=== PATIENT | male | born 1995 | race American Indian/Alaskan Native ===

== ENCOUNTER 2016-09-16 05:44 | Inpatient (IN) | payer OTHER ==
[2016-09-16 06:21] LABS: Basophils % (Auto) 0.4 % (0.0-1.8); Eosinophils % (Auto) 0.2 % (0.0-4.3); Mean Corpuscular HGB Conc 33 % (32-34); Mean Corpuscular Volume 76 fl (84-94); Platelet Count 233 K/mm3 (140-440); Red Blood Count 1.85 M/mm3 (3.65-5.03); Red Cell Distribution Width 17.4 % (13.2-15.2); White Blood Count 7.2 K/mm3 (4.5-11.0)
[2016-09-16 06:28] LABS: Mean Corpuscular Hemoglobin 25 pg (28-32)
[2016-09-16 06:30] LABS: Urine Drugs of Abuse Note Disclamer
[2016-09-16 06:31] LABS: Hemoglobin 4.6 gm/dl (11.8-15.2)
[2016-09-16 06:33] LABS: Hematocrit 14.1 % (35.5-45.6)
[2016-09-16 06:38] LABS: Anion Gap 16 mmol/L; BUN/Creatinine Ratio 18.75; Blood Urea Nitrogen 15 mg/dL (9-20); Carbon Dioxide 23 mmol/L (22-30); Chloride 101.5 mmol/L (98-107); Glucose 123 mg/dL (75-100); Potassium 3.4 mmol/L (3.6-5.0); Sodium 137 mmol/L (137-145)
[2016-09-16] MEDS ORDERED: PROTONIX IV ONE (06:38)
[2016-09-16] MEDS ORDERED: NACL 0.9% 500 ML 500 ML IV ONE ×4 (06:38→19:00)
[2016-09-16] MEDS ORDERED: NACL 0.9% 1000 ML 2,000 ML IV ONE (06:38)
--- NOTE | 2016-09-16 06:40 | Emergency Department Report ---
ED GI Bleed HPI - General Chief complaint: Syncope Stated complaint: PASSED OUT HEAD INJURY Time Seen by Provider: 09/16/16 06:38 Source: patient, family, RN notes reviewed Mode of arrival: Wheelchair Limitations: No Limitations - History of Present Illness Initial comments: This is a 21-year-old male. He is previously unknown to me. He is up-to-date with vaccinations, and has no chronic medical conditions. As per discussion with his family, his primary care doctor is Dr. Lowery The patient is brought to the hospital for black tarry stool since this past Tuesday, one episode of syncope earlier on today. The patient denies abdominal pain. He complains of mild headache. He complains of generalized weakness. He reports using NSAIDs intermittently. There is no midline neck pain. There is no extremity weakness. There is no extremity numbness. His symptoms are constant since Tuesday. They're getting worse. The patient reports no bowel movement for over 36 hours. There is no hematemesis. In the emergency room, the patient was found to have black tarry stool, on rectal examination, with a hemoglobin and hematocrit of 4/14, suggestive of upper GI bleed. 4 units of packed red blood cells were ordered. Protonix IV is ordered, and the case is discussed with gastroenterology, Dr. Lerner. He indicated he will follow as a consult, and does not recommend a Protonix drip. Patient currently has a GCS of 15, with an NIH score of 0, and is clinically sober. Noncontrast CT scan of the brain is negative. Patient had 2 large-bore IVs placed, with normal saline infusing. The case was presented to the Hospital physician, Dr. Olesn, who accepted the patient for symptomatically anemia, presumed upper GI bleed. complaint: melena -: Gradual, days(s) Severity scale (0 -10): 10 Quality: painless Consistency: constant Improves with: none Worsens with: none Associated Symptoms: loss of appetite, syncope. denies: abdominal pain, nausea , vomiting - Related Data Home Medications Medication Instructions Recorded Confirmed Last Taken No Known Home Medications [No 09/16/16 09/16/16 Unknown Reported Home Medications] Allergies Allergy/AdvReac Type Severity Reaction Status Date / Time No Known Allergies Allergy Verified 09/16/16 05:52 ED Review of Systems ROS: Stated complaint: PASSED OUT HEAD INJURY Other details as noted in HPI Constitutional: malaise, weakness Eyes: denies: vision change ENT: denies: epistaxis Respiratory: denies: cough Cardiovascular: syncope Gastrointestinal: melena Genitourinary: denies: dysuria Musculoskeletal: denies: back pain Skin: denies: lesions Neurological: weakness ED Past Medical Hx - Past Medical History Previous Medical History?: No - Surgical History Past Surgical History?: No - Social History Smoking Status: Never Smoker Substance Use Type: None - Medications Home Medications: Home Medications Medication Instructions Recorded Confirmed Last Taken Type No Known Home Medications [No 09/16/16 09/16/16 Unknown History Reported Home Medications] ED Physical Exam - General Limitations: No Limitations General appearance: alert, in no apparent distress - Head Head exam: Present: atraumatic, normocephalic - Eye Eye exam: Present: normal appearance, EOMI, other (bilateral conjunctiva are pale). Absent: nystagmus - ENT ENT exam: Present: normal exam, normal orophraynx, mucous membranes dry - Neck Neck exam: Present: normal inspection, full ROM. Absent: tenderness, meningismus - Respiratory Respiratory exam: Present: normal lung sounds bilaterally. Absent: respiratory distress, wheezes, rales, rhonchi, stridor, chest wall tenderness, accessory muscle use, decreased breath sounds, prolonged expiratory - Cardiovascular Cardiovascular Exam: Present: normal rhythm, tachycardia, normal heart sounds. Absent: systolic murmur, diastolic murmur, rubs, gallop - GI/Abdominal GI/Abdominal exam: Present: soft, normal bowel sounds. Absent: distended, tenderness, guarding, rebound, rigid, pulsatile mass - Rectal Rectal exam: Present: normal inspection, normal rectal tone, heme (+) stool, black stool, other (during rectal examination, I am escorted by nurse PALAK LOPEZ) - Extremities Exam Extremities exam: Present: normal inspection, full ROM, normal capillary refill. Absent: pedal edema, joint swelling, calf tenderness - Back Exam Back exam: Present: normal inspection, full ROM. Absent: tenderness, CVA tenderness (R), CVA tenderness (L), muscle spasm, paraspinal tenderness, vertebral tenderness - Neurological Exam Neurological exam: Present: alert, oriented X3, other (Extraocular movements intact. Tongue midline. No facial droop. Facial sensation intact to light touch in the V1, V2, V3 distribution bilaterally. 5 and 5 strength in 4 extremities.. Sensation is intact to light touch in 4 extremities.). Absent: motor sensory deficit - Psychiatric Psychiatric exam: Present: normal affect, normal mood - Skin Skin exam: Present: warm, dry, intact, normal color. Absent: rash ED Course Vital Signs 09/16/16 09/16/16 09/16/16 05:51 05:52 06:49 Temperature 99.1 F 99.7 F H Pulse Rate 95 H 95 H 101 H Respiratory 20 20 18 Rate Blood Pressure 124/74 Blood Pressure 124/74 123/70 [Right] O2 Sat by Pulse 98 98 100 Oximetry 09/16/16 09/16/16 09/16/16 08:23 08:34 09:10 Temperature 99 F 99.3 F Pulse Rate 95 H 108 H Respiratory 16 19 Rate Blood Pressure 111/78 Blood Pressure 121/71 [Right] O2 Sat by Pulse 100 Oximetry 09/16/16 09:23 Temperature 98.6 F Pulse Rate 95 H Respiratory 16 Rate Blood Pressure 117/66 Blood Pressure [Right] O2 Sat by Pulse Oximetry ED Medical Decision Making - Lab Data Result diagrams: 09/16/16 06:11 09/16/16 06:11 Vital Signs 09/16/16 09/16/16 09/16/16 05:51 05:52 06:49 Temperature 99.1 F 99.7 F H Pulse Rate 95 H 95 H 101 H Respiratory 20 20 18 Rate Blood Pressure 124/74 Blood Pressure 124/74 123/70 [Right] O2 Sat by Pulse 98 98 100 Oximetry Labs 09/16/16 09/16/16 09/16/16 06:11 06:11 06:40 WBC 7.2 RBC 1.85 L Hgb 4.6 L* Hct 14.1 L* MCV 76 L MCH 25 L MCHC 33 RDW 17.4 H Plt Count 233 Lymph % (Auto) 24.9 [place] % (Auto) 9.1 H Eos % (Auto) 0.2 Baso % (Auto) 0.4 Lymph # 1.8 [place] # 0.7 Eos # 0.0 Baso # 0.0 Seg Neutrophils % 65.4 Seg Neutrophils # 4.7 PT INR Sodium 137 Potassium 3.4 L Chloride 101.5 Carbon Dioxide 23 Anion Gap 16 BUN 15 Creatinine 0.8 Estimated GFR > 60 BUN/Creatinine Ratio 18.75 Glucose 123 H Lactic Acid Calcium 8.0 L Urine Color Urine Turbidity Urine pH Ur Specific [place] Urine Protein Urine Glucose (UA) Urine Ketones Urine Blood Urine Nitrite Urine Bilirubin Urine Urobilinogen Ur Leukocyte Esterase Urine WBC (Auto) Urine RBC (Auto) Urine Mucus Urine Opiates Screen Urine Methadone Screen Ur Barbiturates Screen Ur Phencyclidine Scrn Ur Amphetamines Screen U Benzodiazepines Scrn Urine Cocaine Screen U Marijuana (THC) Screen Drugs of Abuse Note Blood Type A POSITIVE Antibody Screen TNR DUTCH Antibody Screen Negative Crossmatch See Detail 09/16/16 09/16/16 09/16/16 Unknown Unknown Unknown WBC RBC Hgb Hct MCV MCH MCHC RDW Plt Count Lymph % (Auto) [place] % (Auto) Eos % (Auto) Baso % (Auto) Lymph # [place] # Eos # Baso # Seg Neutrophils % Seg Neutrophils # PT 14.8 INR 1.17 H Sodium Potassium Chloride Carbon Dioxide Anion Gap BUN Creatinine Estimated GFR BUN/Creatinine Ratio Glucose Lactic Acid Calcium Urine Color Yellow Urine Turbidity Clear Urine pH 6.0 Ur Specific [place] 1.017 Urine Protein <15 mg/dl Urine Glucose (UA) Neg Urine Ketones Neg Urine Blood Neg Urine Nitrite Neg Urine Bilirubin Neg Urine Urobilinogen < 2.0 Ur Leukocyte Esterase Neg Urine WBC (Auto) 2.0 Urine RBC (Auto) 3.0 Urine Mucus Few Urine Opiates Screen Presumptive negative Urine Methadone Screen Presumptive negative Ur Barbiturates Screen Presumptive negative Ur Phencyclidine Scrn Presumptive negative Ur Amphetamines Screen Presumptive negative U Benzodiazepines Scrn Presumptive negative Urine Cocaine Screen Presumptive negative U Marijuana (THC) Screen Presumptive negative Drugs of Abuse Note Disclamer Blood Type Antibody Screen DUTCH Antibody Screen Crossmatch 09/16/16 Unknown WBC RBC Hgb Hct MCV MCH MCHC RDW Plt Count Lymph % (Auto) [place] % (Auto) Eos % (Auto) Baso % (Auto) Lymph # [place] # Eos # Baso # Seg Neutrophils % Seg Neutrophils # PT INR Sodium Potassium Chloride Carbon Dioxide Anion Gap BUN Creatinine Estimated GFR BUN/Creatinine Ratio Glucose Lactic Acid 1.40 Calcium Urine Color Urine Turbidity Urine pH Ur Specific [place] Urine Protein Urine Glucose (UA) Urine Ketones Urine Blood Urine Nitrite Urine Bilirubin Urine Urobilinogen Ur Leukocyte Esterase Urine WBC (Auto) Urine RBC (Auto) Urine Mucus Urine Opiates Screen Urine Methadone Screen Ur Barbiturates Screen Ur Phencyclidine Scrn Ur Amphetamines Screen U Benzodiazepines Scrn Urine Cocaine Screen U Marijuana (THC) Screen Drugs of Abuse Note Blood Type Antibody Screen DUTCH Antibody Screen Crossmatch - EKG Data -: EKG Interpreted by Me Rate: tachycardia - EKG Data 09/16/16 08:24 sinus tachycardia, 100 bpm, normal axis, normal intervals, not morphologically consistent with stemi - Radiology Data Radiology results: report reviewed, image reviewed Noncontrast CT scan of the brain is negative for acute disease Critical Care Time: Yes Critical care time in (mins) excluding proc time.: 35 Critical care attestation.: If time is entered above; I have spent that time in minutes in the direct care of this critically ill patient, excluding procedure time. Critical Care Time: Critical care time includes multiple bedside evaluations, interpretation of laboratory studies, radiology studies, time spent discussing patient's care with multiple consulting services, including hospital medicine and gastroenterology. This also includes time resuscitating a critically ill patient with severely symptomatic anemia, most likely class 2/class III hemorrhage, requiring packed red blood cell transfusion. This does not include procedure time. ED Disposition Clinical Impression: Symptomatic anemia GI bleed Qualifiers: GI bleed type/associated pathology: unspecified gastrointestinal hemorrhage type Qualified Code(s): K92.2 - Gastrointestinal hemorrhage, unspecified Disposition: [id number] OP ADMIT IP TO THIS HOSP Is pt being admited?: Yes Condition: Good
--- NOTE | 2016-09-16 06:43 | Cat Scan Report ---
FINAL REPORT PROCEDURE: CT HEAD/BRAIN WO CON TECHNIQUE: Computerized tomography of the head was performed without contrast material. HISTORY: SYNCOPE/HEAD INJURY COMPARISON: No prior studies are available for comparison. FINDINGS: Skull and scalp: Normal. Paranasal sinuses: Normal. Ventricles and subarachnoid spaces: Normal. Cerebrum: No evidence of hemorrhage, acute infarction or mass . Cerebellum and brainstem: No evidence of hemorrhage, acute infarction or mass. Vasculature: Normal. Comments: None. IMPRESSION: Normal Examination
[2016-09-16 06:52] LABS: Bilirubin,Urine NEG (Negative); Blood,Urine NEG (Negative); Ketones,Urine NEG (Negative); Leukocyte Esterase,Urine NEG (Negative); Mucus,Urine FEW /HPF; Nitrite,Urine NEG (Negative); Protein,Urine <15 mg/dL mg/dL (Negative); Urobilinogen,Urine < 2.0 mg/dL (<2.0)
[2016-09-16] MEDS ORDERED: PROTONIX 80 MG in NACL 0.9% 100 ML IV SCH (07:00)
[2016-09-16 07:23] LABS: INR 1.17 (0.87-1.13)
--- NOTE | 2016-09-16 07:31 | Admit Criteria Form ---
Admission Criteria Documentation: GASTROINTESTINAL BLEEDING Clinical Indications for Inpatient Care (Place 'X' for any and all applicable criteria): Ongoing inpatient care may be indicated for gastrointestinal bleeding with ANY ONE of the following (4)(20)(21)(22)(23)(24): [ ]I. Active bleeding (eg, fresh voluminous blood in emesis or nasogastric aspirate, or per rectum) [ ]II. Hemodynamic instability [ ]III. Anticoagulation therapy or coagulopathy ((eg, advanced liver disease, irreversible anticoagulation) [ ]IV. Ischemic colitis (22) [ ]V. Endoscopy showing arterial bleeding, adherent clot, nonbleeding visible vessel, varices, flat red spots, ulcer size greater than 2 cm, or portal hypertensive gastropathy [ ]. High-risk low platelet count [X]VII. Anemia requiring inpatient care as indicated by ANY ONE of the following a)[ ] Cognitive impairment b)[X] Syncope c)[ ] Heart failure d)[ ] Chest pain e)[ ] Dyspnea f)[ ] Other findings suggesting inadequate perfusion (eg, peripheral or myocardial ischemia, end organ dysfunction) [ ]VIII. High-risk low platelet count [ ]IX. Suspected variceal cause of bleeding as indicated by ANY ONE of the following(27)(28): a)[ ] Known varices b)[ ] Hepatomegaly or splenomegaly c)[ ] Ascites d)[ ] Jaundice or scleral icterus e)[ ] History of liver disease (eg, cirrhosis) f)[ ] Physical findings of portal hypertension (eg, caput [place]usa) g)[ ] Comorbid disorder indicating risk for portal vein thrombosis (eg , abdominal surgery, sepsis, shock, exchange transfusion, prior umbilical vein catheterization) Extended stay may be needed until ALL of the following are present(20)(38)(47): [ ]a) Hemodynamic stability [ ]b) No evidence of active bleeding (eg, stable Hematocrit) [ ]c) Platelet count, prothrombin time, and partial thromboplastin time acceptable for next level of care [ ]d) Surgical or other acute intervention not needed [ ]e) Oral hydration and diet tolerated The original [facility] [employer] content created by Luis Carvalho has been revised. The portions of the content which have been revised are identified through the use of italic text or in bold, and Luis Carvalho has neither reviewed nor approved the modified material. All other unmodified content is copyright [facility]. Please see references footnoted in the original [facility] edition 2016 Admission Criteria Met: Yes
--- NOTE | 2016-09-16 07:38 | History and Physical Report ---
History of Present Illness Date of examination: 09/16/16 Date of admission: 09/16/2016 Chief complaint: Syncope History of present illness: Patient is a 21-year-old male with past medical history except for recent onset of headaches with photophobia. Patient reports that has been using it 100 mg a day of NSAIDs for the past 1 week days to help this headache subside. Patient reports that in the last 4 days has been experiencing black tarry stools and today had a syncopal episode in the restroom and believes he may have hit his head. He denies any blurry vision nausea vomiting or reports black tarry stools and in the ER was noted to have a hemoglobin of less than 5. He denies is not having a bowel movement in the last 4 days nevertheless. Ocular exam done in the ER did show positive occult blood. He denies any chest pain, he does report dizziness. Patient currently has a GCS of 15, with an NIH score of 0, and is clinically sober Primary care doctor is Dr. Beverley MAXWELL Constitutional: No fever, fatigue or weight loss. Skin: No rash. Eyes: No recent vision problems or eye pain. ENT: No congestion, ear pain, or sore throat. Endocrine: No thyroid problems. Cardiovascular: No chest pain. Respiratory: No cough, shortness of breath, congestion, or wheezing. Gastrointestinal: No abdominal pain, nausea, vomiting, or diarrhea. Genitourinary: No dysuria. Musculoskeletal: No joint swelling. Neurologic: No seizures. By reports dizziness Hematologic: Reports black tarry stools . Psychiatric: No psychiatric problems, hallucinations or depression. All other systems reviewed and otherwise negative. Past History Past Medical History: migraines (recent onset in the last week) Past Surgical History: No surgical history Social history: full code. denies: smoking, alcohol abuse, prescription drug abuse, IV drug use Family history: no significant family history Medications and Allergies Allergies Allergy/AdvReac Type Severity Reaction Status Date / Time No Known Allergies Allergy Verified 09/16/16 05:52 Home Medications Medication Instructions Recorded Confirmed Last Taken Type No Known Home Medications [No 09/16/16 09/16/16 Unknown History Reported Home Medications] Active Meds: Active Medications Acetaminophen (Tylenol) 650 mg PO Q4H PRN PRN Reason: Pain MILD(1-3)/Fever >100.5/LIEBERMAN Bisacodyl (Dulcolax) 10 mg VA QDAY PRN PRN Reason: Constipation unrelieved by MOM Magnesium Hydroxide (Milk Of Magnesia) 30 ml PO Q4H PRN PRN Reason: Constipation Ondansetron HCl (Zofran) 4 mg IV Q8H PRN PRN Reason: N/V unrelieved by Reglan Exam - Physical Exam Narrative exam: VITAL SIGNS: Reviewed. GENERAL: The patient appeared well nourished and normally developed. Vital signs as documented. HEAD: No signs of head trauma. EYES: Pupils are equal. Extraocular motions intact. EARS: Hearing grossly intact. MOUTH: Oropharynx is normal. NECK: No adenopathy, no JVD. CHEST: Chest with clear breath sounds bilaterally. No wheezes, rales, or rhonchi. CARDIAC: Regular rate and rhythm. S1 and S2, without murmurs, gallops, or rubs. VASCULAR: No Edema. Peripheral pulses normal and equal in all extremities. ABDOMEN: Soft, without detectable tenderness. No sign of distention. No rebound or guarding, and no masses palpated. Bowel Sounds normal. MUSCULOSKELETAL: Good range of motion of all major joints. Extremities without clubbing, cyanosis or edema. NEUROLOGIC EXAM: Alert and oriented x 3. No focal sensory or strength deficits. Speech normal. Follows commands. PSYCHIATRIC: Mood normal. SKIN: No rash or lesions. - Constitutional Vitals: Temp Pulse Resp BP Pulse Ox 99.7 F H 101 H 18 123/70 100 09/16/16 05:52 09/16/16 06:49 09/16/16 06:49 09/16/16 06:49 09/16/16 06:49 Results - Labs CBC & Chem 7: 09/16/16 06:11 09/16/16 06:11 Labs: Laboratory Last Values WBC 7.2 K/mm3 (4.5-11.0) 09/16/16 06:11 RBC 1.85 M/mm3 (3.65-5.03) L 09/16/16 06:11 Hgb 4.6 gm/dl (11.8-15.2) L* 09/16/16 06:11 Hct 14.1 % (35.5-45.6) L* 09/16/16 06:11 MCV 76 fl (84-94) L 09/16/16 06:11 MCH 25 pg (28-32) L 09/16/16 06:11 MCHC 33 % (32-34) 09/16/16 06:11 RDW 17.4 % (13.2-15.2) H 09/16/16 06:11 Plt Count 233 K/mm3 (140-440) 09/16/16 06:11 Lymph % (Auto) 24.9 % (13.4-35.0) 09/16/16 06:11 [place] % (Auto) 9.1 % (0.0-7.3) H 09/16/16 06:11 Eos % (Auto) 0.2 % (0.0-4.3) 09/16/16 06:11 Baso % (Auto) 0.4 % (0.0-1.8) 09/16/16 06:11 Lymph # 1.8 K/mm3 (1.2-5.4) 09/16/16 06:11 [place] # 0.7 K/mm3 (0.0-0.8) 09/16/16 06:11 Eos # 0.0 K/mm3 (0.0-0.4) 09/16/16 06:11 Baso # 0.0 K/mm3 (0.0-0.1) 09/16/16 06:11 Seg Neutrophils % 65.4 % (40.0-70.0) 09/16/16 06:11 Seg Neutrophils # 4.7 K/mm3 (1.8-7.7) 09/16/16 06:11 PT 14.8 Sec. (12.2-14.9) 09/16/16 Unknown INR 1.17 (0.87-1.13) H 09/16/16 Unknown Sodium 137 mmol/L (137-145) 09/16/16 06:11 Potassium 3.4 mmol/L (3.6-5.0) L 09/16/16 06:11 Chloride 101.5 mmol/L (98-107) 09/16/16 06:11 Carbon Dioxide 23 mmol/L (22-30) 09/16/16 06:11 Anion Gap 16 mmol/L 09/16/16 06:11 BUN 15 mg/dL (9-20) 09/16/16 06:11 Creatinine 0.8 mg/dL (0.8-1.5) 09/16/16 06:11 Estimated GFR > 60 ml/min 09/16/16 06:11 BUN/Creatinine Ratio 18.75 % 09/16/16 06:11 Glucose 123 mg/dL (75-100) H 09/16/16 06:11 Lactic Acid 1.40 mmol/L (0.7-2.0) 09/16/16 Unknown Calcium 8.0 mg/dL (8.4-10.2) L 09/16/16 06:11 Urine Color Yellow (Yellow) 09/16/16 Unknown Urine Turbidity Clear (Clear) 09/16/16 Unknown Urine pH 6.0 (5.0-7.0) 09/16/16 Unknown Ur Specific [place] 1.017 (1.003-1.030) 09/16/16 Unknown Urine Protein <15 mg/dl mg/dL (Negative) 09/16/16 Unknown Urine Glucose (UA) Neg mg/dL (Negative) 09/16/16 Unknown Urine Ketones Neg mg/dL (Negative) 09/16/16 Unknown Urine Blood Neg (Negative) 09/16/16 Unknown Urine Nitrite Neg (Negative) 09/16/16 Unknown Urine Bilirubin Neg (Negative) 09/16/16 Unknown Urine Urobilinogen < 2.0 mg/dL (<2.0) 09/16/16 Unknown Ur Leukocyte Esterase Neg (Negative) 09/16/16 Unknown Urine WBC (Auto) 2.0 /HPF (0.0-6.0) 09/16/16 Unknown Urine RBC (Auto) 3.0 /HPF (0.0-6.0) 09/16/16 Unknown Urine Mucus Few /HPF 09/16/16 Unknown Urine Opiates Screen Presumptive negative 09/16/16 Unknown Urine Methadone Screen Presumptive negative 09/16/16 Unknown Ur Barbiturates Screen Presumptive negative 09/16/16 Unknown Ur Phencyclidine Scrn Presumptive negative 09/16/16 Unknown Ur Amphetamines Screen Presumptive negative 09/16/16 Unknown U Benzodiazepines Scrn Presumptive negative 09/16/16 Unknown Urine Cocaine Screen Presumptive negative 09/16/16 Unknown U Marijuana (THC) Screen Presumptive negative 09/16/16 Unknown Drugs of Abuse Note Disclamer 09/16/16 Unknown Blood Type A POSITIVE 09/16/16 06:40 Antibody Screen TNR 09/16/16 06:40 Crossmatch See Detail 09/16/16 06:40 - Imaging and Cardiology CT Scan - head: image reviewed (NEGATIVE) Assessment and Plan Assessment and plan: Patient is a 21-year-old male with past medical history except for recent onset of headaches with photophobia. Patient reports that has been using it 100 mg a day of NSAIDs for the past 1 week days to help this headache subside. Patient reports that in the last 4 days has been experiencing black tarry stools and today had a syncopal episode in the restroom and believes he may have hit his head. He denies any blurry vision nausea vomiting or reports black tarry stools and in the ER was noted to have a hemoglobin of less than 5. He denies is not having a bowel movement in the last 4 days nevertheless. Ocular exam done in the ER did show positive occult blood. He denies any chest pain, he does report dizziness. Patient currently has a GCS of 15, with an NIH score of 0, and is clinically sober Advance Directives: Yes Plan of care discussed with patient/family: Yes - Patient Problems (1) Syncope and collapse Current Visit: Yes Status: Acute Plan to address problem: -Likely secondary to vasodilatory effect from acute blood loss anemia -will monitor on Telemetry (2) Hypokalemia Current Visit: Yes Status: Acute Plan to address problem: -Replace (3) GI bleed Current Visit: Yes Status: Acute Qualifiers: GI bleed type/associated pathology: unspecified gastrointestinal hemorrhage type Gastritis type: G Qualified Code(s): K92.2 - Gastrointestinal hemorrhage, unspecified Plan to address problem: -GI consulted -PPI IV BID - Transfuse 4 units PRBC and monitor. (4) Symptomatic anemia Current Visit: Yes Status: Acute Plan to address problem: -Transfuse and monitor. (5) Acute blood loss anemia Current Visit: Yes Status: Acute Plan to address problem: -Secondary to GI bleed. Etiology ?, Transfuse as noted above. (6) Migraine Current Visit: Yes Status: Acute Qualifiers: Migraine type: M Status migrainosus presence: S Intractability: I Plan to address problem: -Recommend outpatient Neurology exam if persist. For now, supportive care with MORPHIN and transition to ultram once cleared for PO intake.
[2016-09-16] MEDS ORDERED: NACL 0.9% 500 ML 500 ML ONE (09:05)
[2016-09-16] MEDS ORDERED: ZOFRAN IV PRN (10:00)
[2016-09-16] MEDS ORDERED: TYLENOL PO PRN (10:00)
[2016-09-16] MEDS ORDERED: DULCOLAX PR PRN (10:00)
[2016-09-16] MEDS ORDERED: MILK OF MAGNESIA PO PRN (10:00)
--- NOTE | 2016-09-16 10:20 | Gastroenterology Consultation ---
History of Present Illness - Reason for Consult Consult date: 09/16/16 Requesting physician: JENNIE HURTADO - History of Present Illness Mr. Simms is a 21 y/o male admitted after a syncopal episode at home. On admission he was found to have and H/H of 4.6/14.1. He reports noting black stools over the past week, but no BM in 48 hours. He denies abdominal pain. He was taking aleve and ibuprofen for a LIEBERMAN, but started after seeing melena. Prior to this he was in his normal state of health. No previous GI issues. PMH ; none. Past History Past Medical History: No medical history, migraines (recent onset in the last week) Past Surgical History: No surgical history Social history: full code. denies: smoking, alcohol abuse, prescription drug abuse, IV drug use Family history: no significant family history Medications and Allergies Allergies Allergy/AdvReac Type Severity Reaction Status Date / Time No Known Allergies Allergy Verified 09/16/16 05:52 Home Medications Medication Instructions Recorded Confirmed Last Taken Type No Known Home Medications [No 09/16/16 09/16/16 Unknown History Reported Home Medications] Active Meds: Active Medications Acetaminophen (Tylenol) 650 mg PO Q4H PRN PRN Reason: Pain MILD(1-3)/Fever >100.5/LIEBERMAN Bisacodyl (Dulcolax) 10 mg WI QDAY PRN PRN Reason: Constipation unrelieved by MOM Magnesium Hydroxide (Milk Of Magnesia) 30 ml PO Q4H PRN PRN Reason: Constipation Morphine Sulfate (Morphine) 2 mg IV Q6HR PRN PRN Reason: Pain, Moderate (4-6) Ondansetron HCl (Zofran) 4 mg IV Q8H PRN PRN Reason: N/V unrelieved by Reglan Review of Systems - Review of Systems All systems: negative Constitutional: fatigue Gastrointestinal: melena Neurological: other (syncope) Exam - Constitutional Vital Signs: Temp Pulse Resp BP Pulse Ox 98.6 F 95 H 16 117/66 100 09/16/16 09:23 09/16/16 09:23 09/16/16 09:23 09/16/16 09:23 09/16/16 08:23 General appearance: no acute distress - EENT Eyes: EOM intact ENT: hearing intact - Neck Neck: supple - Respiratory Respiratory: bilateral: CTA - Cardiovascular Rhythm: regular Heart Sounds: Present: S1 & S2 Extremities: No edema - Gastrointestinal General gastrointestinal: Present: soft, non-tender, normal bowel sounds - Integumentary Integumentary: Present: warm, dry - Neurologic Neurological: alert and oriented x3 - Psychiatric Psychiatric: appropriate mood/affect, cooperative - Labs CBC & Chem 7: 09/16/16 06:11 09/16/16 06:11 Lab Results: Laboratory Results - last 24 hr 09/16/16 09/16/16 09/16/16 Unknown Unknown Unknown PT 14.8 INR 1.17 H Lactic Acid Urine Color Yellow Urine Turbidity Clear Urine pH 6.0 Ur Specific Sarita 1.017 Urine Protein <15 mg/dl Urine Glucose (UA) Neg Urine Ketones Neg Urine Blood Neg Urine Nitrite Neg Urine Bilirubin Neg Urine Urobilinogen < 2.0 Ur Leukocyte Esterase Neg Urine WBC (Auto) 2.0 Urine RBC (Auto) 3.0 Urine Mucus Few Urine Opiates Screen Presumptive negative Urine Methadone Screen Presumptive negative Ur Barbiturates Screen Presumptive negative Ur Phencyclidine Scrn Presumptive negative Ur Amphetamines Screen Presumptive negative U Benzodiazepines Scrn Presumptive negative Urine Cocaine Screen Presumptive negative U Marijuana (THC) Screen Presumptive negative Drugs of Abuse Note Disclamer 09/16/16 Unknown PT INR Lactic Acid 1.40 Urine Color Urine Turbidity Urine pH Ur Specific Sarita Urine Protein Urine Glucose (UA) Urine Ketones Urine Blood Urine Nitrite Urine Bilirubin Urine Urobilinogen Ur Leukocyte Esterase Urine WBC (Auto) Urine RBC (Auto) Urine Mucus Urine Opiates Screen Urine Methadone Screen Ur Barbiturates Screen Ur Phencyclidine Scrn Ur Amphetamines Screen U Benzodiazepines Scrn Urine Cocaine Screen U Marijuana (THC) Screen Drugs of Abuse Note Assessment and Plan 1. GI bleed 2. Melena 3. Acute symptomatic anemia -Agree with PRBC transfusion. Patient has received 1 unit to this point and is to receive 3 more. -PPI IV BID -No bleeding / BM in 48 hours. -Hold all blood thinning meds -Hemodynamically stable. -Ok for clear liquids. -Plan for EGD tomorrow. -Further recommendations to follow.
[2016-09-16] MEDS ORDERED: MORPHINE IV PRN (12:00)
[2016-09-16] MEDS ORDERED: PROTONIX IV SCH (22:00)
[2016-09-17 00:01] LABS: Hematocrit 26.3 % (35.5-45.6); Hemoglobin 8.7 gm/dl (11.8-15.2)
[2016-09-17 05:14] LABS: Basophils % (Auto) 0.3 % (0.0-1.8); Eosinophils % (Auto) 0.7 % (0.0-4.3); Hematocrit 25.8 % (35.5-45.6); Hemoglobin 8.6 gm/dl (11.8-15.2); Mean Corpuscular HGB Conc 33 % (32-34); Mean Corpuscular Hemoglobin 27 pg (28-32); Mean Corpuscular Volume 82 fl (84-94); Platelet Count 197 K/mm3 (140-440); Red Blood Count 3.14 M/mm3 (3.65-5.03); Red Cell Distribution Width 16.1 % (13.2-15.2); White Blood Count 7.4 K/mm3 (4.5-11.0)
[2016-09-17 05:18] LABS: Anion Gap 15 mmol/L; BUN/Creatinine Ratio 6.66; Blood Urea Nitrogen 6 mg/dL (9-20); Calcium 8.3 mg/dL (8.4-10.2); Carbon Dioxide 24 mmol/L (22-30); Glucose 85 mg/dL (75-100); Potassium 3.9 mmol/L (3.6-5.0); Sodium 140 mmol/L (137-145)
[2016-09-17] MEDS ORDERED: NACL 0.9% 1000 ML 1,000 ML IV SCH (11:00)
[2016-09-17] MEDS ORDERED: DIPRIVAN 10 MG/ML IV ONE ×2 (11:11)
--- NOTE | 2016-09-17 11:24 | Anesthesia Consultation ---
Anesthesia Consult and Med Hx Date of service: 09/17/16 - Airway Anesthetic Teeth Evaluation: Good (uneven teeth) ROM Head & Neck: Adequate Mental/Hyoid Distance: Adequate Mallampati Class: Class II Intubation Access Assessment: Probably Good - Pre-Operative Health Status ASA Pre-Surgery Classification: ASA2 Proposed Anesthetic Plan: MAC - Pulmonary COPD: No Hx Pneumonia: No - Gastrointestinal Hx Ulcer: Yes (severe GI bleed) - Hematic Hx Anemia: Yes (given 4 units of RBCs)
--- NOTE | 2016-09-17 11:24 | Anesthesia Day of Surgery ---
Anesthesia Day of Surgery - Day of Surgery Patient Examined: Yes Patient H&P Reviewed: Yes Patient is NPO: Yes
[2016-09-17] MEDS ORDERED: XYLOCAINE MPF 2% ONE (12:00)
--- NOTE | 2016-09-17 12:06 | Post Operative Note ---
Pre-op diagnosis: Melena Post-op diagnosis: other (Duodenal bulb ulcer - healing, and small at 5 mm) Findings: 1. 5 mm duodenal bulb ulcer, no stigmata of bleeding. 2. Otherwise normal EGD. 3. Small benign appearing nodule/growth on R side just above epiglottis, 3-4 mm. Procedure: EGD Anesthesia: MAC Surgeon: JENNYFER PORRAS Estimated blood loss: none Pathology: none Condition: stable Disposition: floor (Adv diet, and july D/C from GI standpoint. Needs bid PPI. May f/u in 1 month.)
[2016-09-17] MEDS ORDERED: PROTONIX PO SCH (13:00)
--- NOTE | 2016-09-17 13:30 | Discharge Summary ---
Providers - Providers Date of Admission: 09/16/16 08:06 Date of discharge: 09/17/16 Attending physician: JUAN LOERA Primary care physician: TOMASZ LYLES Hospitalization Condition: Stable Hospital course: Pre-op diagnosis: Melena Post-op diagnosis: other (Duodenal bulb ulcer - healing, and small at 5 mm) Findings: 1. 5 mm duodenal bulb ulcer, no stigmata of bleeding. 2. Otherwise normal EGD. 3. Small benign appearing nodule/growth on R side just above epiglottis, 3-4 mm. Procedure: EGD Anesthesia: MAC Surgeon: JENNYFER PORRAS Estimated blood loss: none Pathology: none Condition: stable Disposition: floor (Adv diet, and july D/C from GI standpoint. Needs bid PPI. May f/u in 1 month.) Disposition: TO HOME OR SELFCARE Time spent for discharge: 33 minutes Core Measure Documentation - Palliative Care Palliative Care/ Comfort Measures: Not Applicable - Core Measures Any of the following diagnoses?: none - VTE Discharge Requirements Deep Vein Thrombosis/Pulmonary Embolism Present on Admission: No Has pt received <5 days of overlap therapy or INR<2.0: No Anticoagulant overlap therapy prescribed at discharge: No Contraindication No Overlap Therapy order at DC: Not Indicated Exam - Physical Exam Narrative exam: GEN: WDWN, NAD, AWAKE, ALERT, ORIENTATED x 3 HEENT: NCAT, PERRL, EOMI, OP CLEAR NECK: SUPPLE, NO THYROMEGALY, NO JVD, NO LAD CVS: RRR, NORMAL S1S2 LUNGS/CHEST: CTA B, NORMAL CHEST EXPANSION B, GOOD AIR ENTRY B ABD: SOFT, NTND, GBS, NO REBOUND OR GUARDING EXT/SKIN: NO SIGNIFICANT EDEMA OR RASH MSK: FROM X 4 EXTREMITIES NEURO: CN 2-12 GROSSLY INTACT, NO FOCAL DEFICITS PSY: CALM - Constitutional Vitals: Temp Pulse Resp BP Pulse Ox 98.1 F 75 75 H 115/70 100 09/17/16 11:43 09/17/16 12:20 09/17/16 12:20 09/17/16 12:20 09/17/16 12:20 Plan Activity: other (no strenous activites until cleared by PCP. ) Diet: advance as tolerated (soft diet and advance as tolerate) Additional Instructions: No Ibuprofen, No Motrin, No aleve, no aspirin, no Naproxen, no Naprosyn, no Goody powder, no bc goody Follow up with: TOMASZ LYLES MD [Primary Care Provider] - 3-5 Days JENNYFER PORRAS MD [Staff Physician] - 10/18/16 Prescriptions: Pantoprazole [Protonix TAB] 40 mg PO BID #1 mo
[2016-09-17 13:43] VITALS: BP 113/69
--- NOTE | 2016-09-17 23:07 | Operative Report ---
PROCEDURE: Upper endoscopy. PREOPERATIVE DIAGNOSIS: Melena and anemia. POSTOPERATIVE DIAGNOSES: Duodenal bulb ulcer and a small benign-appearing nodule in posterior pharynx. SEDATION: MAC by Anesthesia. HISTORY: The patient is a 21-year-old man who was taking NSAIDs and presented with a 6-day history of melena and syncope. On admission, he had hemoglobin of 4.6 and was transfused to a hemoglobin of 8.6. He has had no further melena for 48 hours. Procedure, indications, risks, and benefits were explained and consent was obtained. The patient was placed in left lateral decubitus position and sedated. [employer] video upper scope was passed through the mouth and oropharynx into the descending duodenum. Scope was then gradually withdrawn with close inspection of mucosa. FINDINGS: 1. Normal appearing esophagus with sharp Z-line located at 40-cm from the incisors. 2. Normal appearing gastric antrum, fundus, body, and cardia. 3. Small 5-mm duodenal bulb ulcer along the anterior aspect noted that appeared to be healing with no stigmata whatsoever. 4. Remainder of duodenal bulb and duodenum were normal appearing. 5. On scope withdrawal, just above the epiglottis on the right side, there appeared to be a 4-5 mm mucosal protuberance consistent with hyperplastic mucosa or nodule. This appeared to be benign. The patient tolerated the procedure well without immediate complications. IMPRESSION: 1. Duodenal bulb ulcer -- apparently healing, likely source of bleeding. 2. Otherwise, normal endoscopy except for pharyngeal lesion as noted above. RECOMMENDATION: 1. Discharge to home on a daily PPI for 2 months. 2. Follow up CBC and check H. pylori antibody in 1 month. 3. If takes NSAIDs in the future, will need to take PPI to protect his stomach. 4. Otherwise, further evaluation as per primary care physician. JOB# [id number] HRC/NTS
== END 2016-09-17 14:45 | disposition home or self-care (01) | DRG 378 ==
LOC: ED 05:44 → 4A 08:06
PROVIDERS: ADMIT Internal Medicine; ATTEND Internal Medicine
PROC: 30233N1 Transfusion of Nonautologous Red Blood Cells into Peripheral Vein, Percutaneous Approach (ICD-10-PCS; 2016-09-16)
PROC: 0DJ08ZZ Inspection of Upper Intestinal Tract, Via Natural or Artificial Opening Endoscopic (ICD-10-PCS; principal; 2016-09-17)
DX: K26.4 Chronic or unspecified duodenal ulcer with hemorrhage (principal); D62 Acute posthemorrhagic anemia; E87.6 Hypokalemia; R55 Syncope and collapse; J39.2 Other diseases of pharynx; G43.909 Migraine, unspecified, not intractable, without status migrainosus
CPT/HCPCS: 36415; 70450; 80048; 80307; 81001; 82140; 82271; 85014; 85018; 85025; 85610; 86850; 86900; 86901; 86920; 93005; 93010; 96374; C9113; J2405; J2704; J7030; J7040; P9016